=== PATIENT | female | born 1975 | race Caucasian/White ===

== ENCOUNTER 2023-02-09 13:49 | Emergency (ER) | payer SELFPAY ==
[~2023-02-09] VITALS: Ht 147.3 cm; Wt 86.4 kg
[2023-02-09] MEDS ORDERED: TUSS PO ×2 (15:51→15:56)
[2023-02-09 16:35] VITALS: BP 126/88; PULSE 78; TEMP 97.5
== END 2023-02-09 16:30 | disposition home or self-care (01) ==
LOC: COL.ER 13:49
DX: J10.1 Influenza due to other identified influenza virus with other respiratory manifestations (principal); F17.210 Nicotine dependence, cigarettes, uncomplicated; Z88.6 Allergy status to analgesic agent